=== PATIENT | male | born 1995 | race African-American/Black ===

== ENCOUNTER 2022-02-09 05:11 | Emergency (ER) | payer BC, SELFPAY ==
[2022-02-09 05:11] VITALS: BP 153/89; PULSE 77; RESP 18; TEMP 36.7; O2SAT 100; BMI 17.3
--- NOTE | 2022-02-09 05:39 | ED.RN ---
per Dr Hodges patient does not require a sitter.
--- NOTE | 2022-02-09 05:44 | EX.ED.DYSGE1 ---
HPI History of Present Illness Chief Complaint: Suicidal Narrative Narrative: Patient is a 26-year-old male who is brought in by police this evening. Patient had reportedly called crisis center multiple times tonight because of depression with suicidal ideation and after multiple conversations police were sent to his residence to bring him in for psychiatric screening. The patient denies any alcohol or drug use and he denies any toxic ingestion this evening or attempt to hurt himself. He does state that he has had increased stress recently with concern that he will soon be evicted. He reports his increased stress has led to increased depression and now he is having thoughts of suicidal ideation. He denies any previous suicide attempt or psychiatric placement but does report he has had passing thoughts of stabbing himself. Therefore with his worsening symptoms and recurrent calls to crisis he was sent in for psychiatric screening and medical evaluation [facility] Medical History no medical history no medical history Allergy/AdvReac Type Severity Reaction Status Date / Time No Known Allergies Allergy Verified 02/09/22 05:34 Surgical History no surgical history Social History Smoking Status: Former smoker [facility] ED Constitutional Constitutional ED: Denies chills or fever(s) ENT ENT ED: Denies sore throat Cardiovascular Cardiovascular: Denies chest pain Respiratory/Chest Respiratory/Chest: Denies cough or dyspnea Gastrointestinal Gastrointestinal: Denies abdominal pain, diarrhea, nausea or vomiting Genitourinary Genitourinary ED: Denies dysuria Musculoskeletal Musculoskeletal: Denies myalgias Integumentary Denies rash Neurologic Neurologic: Denies headache(s) Psychiatric Psychiatric: Reports depression, suicidal ideation and suicidal thoughts Hematologic/Lymphatic Hematologic/Lymphatic: Denies easy bleeding or easy bruising EXAM Physical Exam Const Vital Signs: 02/09/22 05:11 Temperature 98.0 F Temperature Source Temporal Pulse Rate 77 Respiratory Rate 18 Blood Pressure 153/89 H Blood Pressure Mean 110 Pulse Ox 100 Oxygen Delivery Method Room Air Positive well nourished and well developed General Appearance ED: well developed Eyes PERRL and EOMs intact bilaterally Neck supple Resp normal respiratory effort and clear to auscultation bilaterally Cardio regular rate and regular rhythm GI normal to inspection, nondistended, normoactive bowel sounds, non-tender, non-distended and no masses Auscultation: normoactive bowel sounds Palpation: soft Extremity normal to inspection Neuro oriented x3 and CN's II-XII intact bilaterally Sensorium / Orientation: alert Motor Exam: strength 5/5 throughout Psych Psych Narrative: Patient has a depressed/flat affect with suicidal ideation Mood & Affect: depressed Skin no rashes or lesions noted MDM MDM MDM Narrative Medical decision making narrative: Patient presented to the ER slightly hypertensive but otherwise with stable vitals and in no acute distress. He denied any alcohol or illicit drugs or suicide attempts but did admit to increased depression from increased stress in his life with suicidal thoughts. As he had reportedly called crisis center multiple times I did feel he warranted a psychiatric evaluation. At this time he is low to moderate risk for harming himself as he has depression a stressor and increasing thoughts of suicide but as he has never been psychiatrically rehospitalized or attempted to harm himself he does not fall in the high risk. He will be evaluated by crisis center because of his symptoms but if they do not feel he warrants inpatient treatment then I believe it is acceptable to discharge home. The patient will be signed out to the oncoming physician while awaiting evaluation by crisis center Lab Data Attestation: I reviewed the patient's lab results. Labs: Laboratory Results - last 24 hr 02/09/22 02/09/22 02/09/22 05:30 05:30 05:31 WBC 5.9 RBC 4.51 L Hgb 14.3 Hct 42.0 MCV 93.1 MCH 31.7 MCHC 34.0 RDW Std Deviation 39.1 RDW Coeff of Jason 11.5 L Plt Count 257 MPV 10.9 Immature Gran % (Auto) 0.200 Neut % (Auto) 69.1 Lymph % (Auto) 20.0 [place] % (Auto) 7.0 Eos % (Auto) 2.9 Baso % (Auto) 0.8 Absolute Neuts (auto) 4.1 Absolute Lymphs (auto) 1.18 Nucleated RBC % 0 Sodium 139 Potassium 3.1 L Chloride 103 Carbon Dioxide 28.0 Anion Gap 8 BUN 15 Creatinine 0.99 Estim Creat Clear Calc 107.13 Est GFR (MDRD) Af Amer 118 Est GFR (MDRD) Non-Af 98 BUN/Creatinine Ratio 15.2 Glucose 122 H Calcium 9.1 Ur Drug Screen Comment Discharge Plan Triage Chief Complaint: Suicidal ED Provider: Stephon Hodges Dx/Rx/DC Orders Clinical Impression: Depression Primary Care Provider: Care Physician,No Primary Referrals: Care Physician,No Primary [Primary Care Provider] -
[2022-02-09 06:01] LABS: Absolute Lymphocyte Count 1.18 X10^3/uL (0.83-4.51); Absolute Neutrophil Count 4.1 X10^3/uL (2.0-7.7); Basophil# 0.05 X10^3/uL; Basophil% 0.8 % (0-1); Eosinophil# 0.17 X10^3/uL; Eosinophils% 2.9 % (0-5); Hemoglobin 14.3 g/dL (13.0-16.5); Lymphocyte # 1.18 X10^3/ul (0.83-4.51); Mean Corpuscular Hgb 31.7 pg (27.0-32.0); Mean Corpuscular Volume 93.1 fL (80-94); Mean Platelet Vol. 10.9 fl (6.2-12.0); Monocyte# 0.41 X10^3/uL; NRBC Flagged by Analyzer 0 % (0-5); Neutrophil # 4.07 X10^3/uL (2.7-7.7); Neutrophil % 69.1 % (47-70); Platelet Count 257 K/mm3 (150-450); RBC Distribution Width CV 11.5 % (11.6-14.6); RBC Distribution Width SD 39.1 fl (35.1-43.9); Red Blood Count 4.51 M/mm3 (4.6-6.2); White Blood Count 5.9 K/mm3 (4.4-11.0)
[2022-02-09 06:14] LABS: Anion Gap 8 (5-15); BUN 15 mg/dL (7-18); BUN/Creat Ratio 15.2 RATIO (10-20); Calcium,Total 9.1 mg/dL (8.5-10.1); Chloride 103 mmol/L (98-107); Creatinine, Serum 0.99 mg/dL (0.70-1.30); EST Glomerular Filtration Rate 98 mL/min (>60); Est Glom Filt Rate - Afr Amer 118 mL/min (>60); Estimated Creatinine Clearance 107.13 ml/min; Glucose 122 mg/dL (74-106); Potassium 3.1 mmol/L (3.5-5.1); Sodium Level 139 mmol/L (136-145)
[2022-02-09 06:39] LABS: Acetaminophen (Tylenol) Level < 2.0 ug/mL (10.0-30.0); Alcohol, Blood (Medical)-Serum < 3.0 mg/dL; Salicylate < 1.7 mg/dL (2.8-20.0)
[2022-02-09 06:42] VITALS: RESP 17
[2022-02-09 06:43] LABS: Amphetamine Urine VISTA NEGATIVE (<1000 ng/mL); Barbiturate Urine VISTA NEGATIVE (< 200 ng/mL); Benzodiazepine Urine VISTA NEGATIVE (< 200 ng/mL); Cocaine Urine VISTA NEGATIVE (< 300 ng/mL); Ecstacy Urine VISTA NEGATIVE (< 500 ng/mL); Methadone Urine VISTA NEGATIVE (< 300 ng/mL); PCP Urine VISTA NEGATIVE (< 25 ng/mL); THC Urine VISTA POSITIVE (< 50 ng/mL); Vista UDS pH Range 6
--- NOTE | 2022-02-09 08:38 | ED.RN ---
CRISIS CALLED AND TALKED W PT ON THE PHONE
== END 2022-02-09 09:28 | disposition home or self-care (01) ==
PROVIDERS: Emergency Provider Emergency Medicine; Visit Provider Emergency Medicine
DX: F32.A Depression, unspecified (principal); R45.851 Suicidal ideations; Z87.891 Personal history of nicotine dependence; Z59.89 Other problems related to housing and economic circumstances
CPT/HCPCS: 80048; 80307; 80329; 82077; 85025; 87811; 99283; G0480